=== PATIENT | female | born 1955 | race Caucasian/White ===

== ENCOUNTER 2020-07-24 10:04 | Emergency (ER) | payer BC ==
[~2020-07-24] VITALS: Ht 154.9 cm; Wt 64.7 kg
[2020-07-24 10:28] VITALS: BP 126/82
== END 2020-07-24 11:49 | disposition home or self-care (01) ==
LOC: ER 10:04
DX: S93.401A Sprain of unspecified ligament of right ankle, initial encounter (principal); W19.XXXA Unspecified fall, initial encounter; Y93.89 Activity, other specified; Y92.89 Other specified places as the place of occurrence of the external cause; Y99.8 Other external cause status
CPT/HCPCS: 73610; 99283

== ENCOUNTER 2021-04-04 10:15 | Inpatient (IN) | payer BC, OTHER ==
[~2021-04-04] VITALS: Ht 154.9 cm; Wt 97.9 kg
[2021-04-05] MEDS ORDERED: ESCI-8 PO (09:34)
[2021-04-05] MEDS ORDERED: SUMA25TA35 PO (09:34)
[2021-04-05] MEDS ORDERED: FENTANYL PAIN PUMP (09:34)
[2021-04-05] MEDS ORDERED: TRAZ-256 PO (09:34)
[2021-04-05] MEDS ORDERED: ADAL40PE SUBCUT (09:34)
[2021-04-05] MEDS ORDERED: ATOR20TA PO (09:34)
[2021-04-05 09:55] LABS: BASOPHILS # (AUTO) 0.1 X10'3 (0-0.2); BASOPHILS % (AUTO) 1.2 % (0-1); EOSINOPHILS # (AUTO) 0.1 X10'3 (0-0.9); EOSINOPHILS % (AUTO) 2.2 % (0-6); LYMPHOCYTES # (AUTO) 2.5 X10'3 (1.1-4.8); LYMPHOCYTES % (AUTO) 37.4 % (21-51); MEAN CORPUSCULAR HEMOGLOBIN 31.7 PG (27.0-31.0); MEAN CORPUSCULAR HGB CONC 33.7 g/dL (33.0-36.5); MEAN CORPUSCULAR VOLUME 93.9 FL (78-98); MEAN PLATELET VOLUME 8.4 FL (7.4-10.4); MONOCYTES # (AUTO) 0.7 X10'3 (0-0.9); MONOCYTES % (AUTO) 10.4 % (2-12); NEUTROPHILS # (AUTO) 3.2 X10'3 (1.8-7.7); NEUTROPHILS % (AUTO) 48.8 % (42-75); PRE OP HEMATOCRIT 45.7 % (35.0-45.0); PRE OP HEMOGLOBIN 15.4 g/dL (12.0-16.0); PRE OP PLATELET COUNT 215 X10'3 (140-440); RED BLOOD COUNT 4.87 X10'6 (4.20-5.60)
[2021-04-05 09:57] LABS: CLARITY,URINE CLEAR (Clear); COLOR,URINE YELLOW (Yellow); GLUCOSE, URINE NEGATIVE (Neg); KETONES,URINE NEGATIVE (Neg); LEUKOCYTE ESTERASE ,URINE NEGATIVE (Neg); NITRITES, URINE NEGATIVE (Neg); OCCULT BLOOD,URINE NEGATIVE (Neg); PH,URINE 6.5 (4.8-8.0); PROTEIN,URINE NEGATIVE (Neg); UA COLLECTION TYPE CLN CATCH MIDSTREAM; UROBILINOGEN,URINE 0.2 E.U/dL (0.2-1.0)
[2021-04-05 10:00] LABS: PRE OP PROTIME 10.2 SECONDS (9.0-12.0)
[2021-04-05 10:12] LABS: ALBUMIN 3.7 G/DL (3.4-5.0); ALBUMIN/GLOBULIN RATIO 1.1 (1.1-1.5); ALKALINE PHOSPHATASE 66 IU/L (46-116); BLOOD UREA NITROGEN 10 MG/DL (7-18); BUN/CREATININE RATIO 10.5 (6.6-38.0); CHLORIDE 107 MMOL/L (99-107); CREATININE 0.95 MG/DL (0.40-0.90); PRE OP ALT 27 U/L (30-65); PRE OP ANION GAP 3 (8-16); PRE OP AST 21 U/L (10-37); PRE OP BILIRUB, TOTAL 0.3 MG/DL (0.0-1.0); PRE OP GLUCOSE 94 MG/DL (70-104); PRE OP SODIUM 140 MMOL/L (135-145); TOTAL CARBON DIOXIDE 30.3 MMOL/L (24-32); eGFR 59 ML/MIN
[2021-04-05 10:16] LABS: PRE OP POTASSIUM 4.3 MMOL/L (3.4-5.1)
[2021-04-08] MEDS ORDERED: ringers solution, lacted 1,000 ML IV SCH (05:00)
[2021-04-08] MEDS ORDERED: ceFAZolin 2gm in dextrose, iso 50 ML IV ONE (05:30)
[2021-04-08] MEDS ORDERED: famotidine 20mg tablet PO ONE (05:30)
[2021-04-26 12:00] LABS: BASOPHILS # (AUTO) 0.1 X10'3 (0-0.2); BASOPHILS % (AUTO) 1.1 % (0-1); EOSINOPHILS # (AUTO) 0.1 X10'3 (0-0.9); LYMPHOCYTES % (AUTO) 33.6 % (21-51); MEAN CORPUSCULAR HEMOGLOBIN 32.4 PG (27.0-31.0); MEAN CORPUSCULAR HGB CONC 34.4 g/dL (33.0-36.5); MEAN CORPUSCULAR VOLUME 94.4 FL (78-98); MEAN PLATELET VOLUME 8.3 FL (7.4-10.4); MONOCYTES # (AUTO) 0.7 X10'3 (0-0.9); MONOCYTES % (AUTO) 8.2 % (2-12); NEUTROPHILS % (AUTO) 56.1 % (42-75); PRE OP HEMATOCRIT 44.4 % (35.0-45.0); PRE OP HEMOGLOBIN 15.3 g/dL (12.0-16.0); PRE OP PLATELET COUNT 214 X10'3 (140-440); RED BLOOD COUNT 4.71 X10'6 (4.20-5.60); RED CELL DISTRIBUTION WIDTH 14.2 % (11.5-14.5)
[2021-04-26 12:14] LABS: CLARITY,URINE CLEAR (Clear); COLOR,URINE YELLOW (Yellow); GLUCOSE, URINE NEGATIVE (Neg); KETONES,URINE NEGATIVE (Neg); LEUKOCYTE ESTERASE ,URINE NEGATIVE (Neg); NITRITES, URINE NEGATIVE (Neg); OCCULT BLOOD,URINE NEGATIVE (Neg); PROTEIN,URINE NEGATIVE (Neg); UROBILINOGEN,URINE 0.2 E.U/dL (0.2-1.0)
[2021-04-26 12:16] LABS: ALBUMIN 4.2 G/DL (3.4-5.0); ALBUMIN/GLOBULIN RATIO 1.3 (1.1-1.5); ALKALINE PHOSPHATASE 70 IU/L (46-116); BLOOD UREA NITROGEN 11 MG/DL (7-18); BUN/CREATININE RATIO 12.8 (6.6-38.0); CALCIUM 9.1 MG/DL (8.5-10.1); CHLORIDE 106 MMOL/L (99-107); CREATININE 0.86 MG/DL (0.40-0.90); PRE OP ALT 25 U/L (30-65); PRE OP ANION GAP 10 (8-16); PRE OP AST 22 U/L (10-37); PRE OP BILIRUB, TOTAL 0.4 MG/DL (0.0-1.0); PRE OP GLUCOSE 105 MG/DL (70-104); PRE OP POTASSIUM 4.1 MMOL/L (3.4-5.1); PRE OP SODIUM 141 MMOL/L (135-145); TOTAL CARBON DIOXIDE 25.3 MMOL/L (24-32); TOTAL PROTEIN 7.5 G/DL (6.4-8.2); eGFR 67 ML/MIN
[2021-04-26 12:20] LABS: UA COLLECTION TYPE CLN CATCH MIDSTREAM
[2021-04-29] MEDS ORDERED: ceFAZolin 2gm in dextrose, iso 50 ML IV ONE (05:30)
[2021-04-29] MEDS ORDERED: ringers solution, lacted 1,000 ML IV SCH (05:30)
[2021-04-29] MEDS ORDERED: famotidine 20mg tablet PO ONE (05:30)
[2021-04-29 11:15] VITALS: BP_SYST 143; BP_DIAS 82; BP_DIAS 92
--- NOTE | 2021-04-29 12:00 | NUR ---
RT AT BEDSIDE. BEDSIDE PFT IN PROCESS. Addendum: 04/29/21 at 1229 by Lilian Wills RN, RN Amended: Links added.
[2021-04-29] MEDS ORDERED: albuterol 2.5 MG/3 ML nebule NEB ONE (12:10)
[2021-04-29] MEDS ORDERED: ipratropium/albuterol 3ml nebule NEB PRN (14:55)
[2021-04-29] MEDS ORDERED: diazepam inj 5 MG/ML inj. IV ONE (14:55)
--- NOTE | 2021-04-29 15:27 | NUR ---
RT AT BEDSIDE ADMINISTERING BREATHING TREATMENT Addendum: 04/29/21 at 1527 by Lilian Wills RN, RN Amended: Links added.
== END 2021-04-29 22:14 | disposition home or self-care (01) | DRG 182 ==
LOC: PAS IN 04-29 11:10
PROVIDERS: ADMIT Surgery; ATTEND Surgery
DX: C34.91 Malignant neoplasm of unspecified part of right bronchus or lung (principal); M19.90 Unspecified osteoarthritis, unspecified site; J44.9 Chronic obstructive pulmonary disease, unspecified; F32.A Depression, unspecified; E78.5 Hyperlipidemia, unspecified; G89.29 Other chronic pain; Z79.899 Other long term (current) drug therapy
CPT/HCPCS: 36415; 71046; 71250; 80053; 81003; 82948; 85025; 85610; 85730; 86885; 86900; 86901; 87081; 87635; 93005; 94060; 94640; 94760; J0690; J3360; J7120

== ENCOUNTER 2021-05-03 11:15 | Inpatient (IN) | payer OTHER ==
[~2021-05-03] VITALS: Ht 154.9 cm; Wt 63.5 kg
[~2021-05-03 11:15] MED LIST: ADAL40PE SUBCUT; ATOR20TA PO; ESCI-8 PO; FENTANYL PAIN PUMP; SUMA25TA35 PO; TRAZ-256 PO; cefazolin/dext.iso 2gm/50ml IV ONE; famotidine 20mg tablet PO ONE; ringers solution, lacted 1,000 ML IV SCH
[2021-05-06] VITALS (15 sets, daily range): BP systolic 90–139; BP diastolic 40–62
[2021-05-06] MEDS ORDERED: SUMAtriptan 25 MG tablet PO PRN (05:30)
[2021-05-06 06:43] LABS: ABG BASE EXCESS -1.1 mmol/L (-2.0-2.0); ABG HCO3 22.8 mmol/L (22.0-26.0); ABG OXYGEN SATURATION 95.1 % (94-97); ABG PO2 (T) 73.3 mmHg (75.0-100.0); ALLEN'S TEST POSITIVE; FCOHb 0.6 % (0.0-3.9); FMetHb 0.1 % (0.0-1.5); FO2Hb 94.4 % (94-97); TOTAL HEMOGLOBIN 15.5 G/dl (12.0-16.0)
[2021-05-06] MEDS ORDERED: ringers solution, lacted 1,000 ML IV SCH ×2 (12:45→19:50)
[2021-05-06] MEDS ORDERED: famotidine 20mg tablet PO ONE (12:45)
[2021-05-06 13:34] LABS: PARTIAL THROMBOPLASTIN TIME 27 SECONDS (22-32)
[2021-05-06] MEDS ORDERED: midazolam 1 mg/ML 2ml injection ONE (14:12)
[2021-05-06] MEDS ORDERED: fentaNYL /PF 50mcg/ml 5ml ampule ONE ×2 (14:37→16:28)
[2021-05-06] MEDS ORDERED: LIDOcaine 1% (10mg/ml) 2ml vial ONE (14:37)
[2021-05-06] MEDS ORDERED: LIDOcaine 2% (20mg/ml) 5ml vial ONE (16:09)
[2021-05-06] MEDS ORDERED: BUPIVAcaine/PF 2.5mg/ml (0.25%) 10ml vial ONE (16:09)
[2021-05-06] MEDS ORDERED: rocuronium 10mg/ml inj IV ONE ×3 (16:09→19:07)
[2021-05-06] MEDS ORDERED: ePHEDrine 50MG/ML INJ. ONE (16:09)
[2021-05-06] MEDS ORDERED: BUPIVACAINE liposomal/PF 13.3 MG/ML vial IM ONE (16:09)
[2021-05-06] MEDS ORDERED: propofol inj 20 ML IV ONE (16:10)
[2021-05-06] MEDS ORDERED: INDOCYANINE GREEN 25 MG/10 ML VIAL IV ONE (17:19)
[2021-05-06] MEDS ORDERED: sugammadex 200mg/2ml injection IV ONE (18:30)
[2021-05-06] MEDS ORDERED: ceFAZolin 1000mg inj ONE (19:07)
[2021-05-06] MEDS ORDERED: morphine 10mg/ml inj. ONE ×2 (19:24→19:31)
[2021-05-06] MEDS ORDERED: fentaNYL/PF 50MCG/1 ML 2ML syringe ONE ×2 (19:35)
--- NOTE | 2021-05-06 19:44 | NUR ---
Received from OR via BED IN STABLE CONDITION , accompanied by Anesthesiologist and CHILDREN'S SERVICE WORKER report given by CHILDREN'S SERVICE WORKER AND Anesthesiolgist. Addendum: 05/06/21 at 2012 by Trinidad Jackson RN Amended: Links added.
[2021-05-06] MEDS ORDERED: ondansetron/PF 4mg/2ml inj IV PRN ×2 (19:50→20:00)
[2021-05-06] MEDS ORDERED: morphine 2 MG/ML inj. syringe IV PRN (19:50)
[2021-05-06] MEDS ORDERED: hydrALAZINE 20mg/ml inj. IV PRN (19:50)
[2021-05-06] MEDS ORDERED: labetalol 20mg/4ml (5mg/ml) syringe IV PRN (19:50)
[2021-05-06] MEDS ORDERED: proCHLORperazine 10 MG/2 ml inj IV PRN (19:50)
[2021-05-06] MEDS ORDERED: morphine 4 MG/ML inj SYRINge IV PRN (19:50)
[2021-05-06] MEDS ORDERED: fentaNYL/PF 50MCG/1 ML 2ML syringe IV PRN ×2 (19:50)
[2021-05-06] MEDS ORDERED: ketorolac trometh. 30mg/ml inj. IV ONE (19:55)
[2021-05-06] MEDS ORDERED: albuterol 2.5 MG/3 ML nebule NEB PRN (20:00)
[2021-05-06] MEDS: ketorolac trometh. 30mg/ml inj. IV SCH (20:00)
[2021-05-06] MEDS ORDERED: metoclopramide 5 mg/ml inj IV PRN (20:00)
[2021-05-06] MEDS ORDERED: CADD PCA waste documentation MC PRN (20:00)
[2021-05-06] MEDS ORDERED: naloxone 0.4 mg/ml inj IV PRN (20:00)
--- NOTE | 2021-05-06 20:12 | NUR ---
PATIENT STARTED TO DESATURATE ABOUT 1950 AND HAD SNORING RESPIRATIONS ORAL AIRWAY PLACED. THEN AT APPROXIMATELY 1999 PATIENT BECAME ALERT AND ORAL AIRWAY WAS REMOVED. Addendum: 05/06/21 at 2014 by Trinidad Jackson RN Amended: Links added.
[2021-05-06 20:27] LABS: ABG BASE EXCESS -4.4 mmol/L (-2.0-2.0); ABG HCO3 23.9 mmol/L (22.0-26.0); ABG OXYGEN SATURATION 95.3 % (94-97); ABG PCO2 (T) 58.2 mmHg (32.0-45.0); ABG PO2 (T) 89.4 mmHg (75.0-100.0); FCOHb 0.2 % (0.0-3.9); FLOW 10 L/min; FMetHb 0.2 % (0.0-1.5); FO2Hb 94.9 % (94-97); TOTAL HEMOGLOBIN 13.7 G/dl (12.0-16.0)
--- NOTE | 2021-05-06 21:04 | NUR ---
PATIENT DISCHARGED FROM PACU IN STABLE CONDITION AFTER REPORT GIVEN. PATIENT TRANSFERRED VIA BED TO ROOM 2012 WITH RNX2. Addendum: 05/06/21 at 2 by Trinidad Jackson RN Amended: Links added.
[2021-05-06] MEDS: gabapentin 300mg capsule PO SCH (22:28)
[2021-05-06] MEDS: HYDROcodone/acetaminophen 10/325mg tab PO PRN (22:29)
[2021-05-06 23:01] LABS: ABG BASE EXCESS -2.8 mmol/L (-2.0-2.0); ABG HCO3 24.2 mmol/L (22.0-26.0); ABG OXYGEN SATURATION 96.2 % (94-97); ABG PCO2 (T) 51.1 mmHg (32.0-45.0); ABG PO2 (T) 89.2 mmHg (75.0-100.0); FCOHb 0.3 % (0.0-3.9); FMetHb 0.2 % (0.0-1.5); FO2Hb 95.7 % (94-97); TOTAL HEMOGLOBIN 13.9 G/dl (12.0-16.0)
[2021-05-06] MEDS: potassium Cl 20mEq in D5-NS 1,000 ML IV SCH (23:39)
[2021-05-07] VITALS (31 sets, daily range): BP systolic 83–125; BP diastolic 32–64
[2021-05-07] MEDS: ceFAZolin inj. 1,000 MG in dextrose 5%-water 50ml 50 ML IV SCH ×2 (00:07→09:05)
[2021-05-07] MEDS: NORepinephrine 8mg/ 250ml NS 250 ML IV SCH (00:42)
[2021-05-07] MEDS: ketorolac trometh. 30mg/ml inj. IV SCH ×3 (02:00→13:46)
[2021-05-07] MEDS ORDERED: amiodarone/D5 360MG/200ML BAG 200 ML IV ONE (04:29)
[2021-05-07] MEDS: morphine 4 MG/ML inj SYRINge IV PRN ×2 (05:15→20:46)
[2021-05-07] MEDS: gabapentin 300mg capsule PO SCH ×2 (10:05→18:52)
[2021-05-07] MEDS: potassium Cl 20mEq in D5-NS 1,000 ML IV SCH ×2 (11:17→18:52)
[2021-05-07] MEDS ORDERED: SUMAtriptan 25 MG tablet PO PRN (11:40)
[2021-05-07] MEDS: pantoprazole 40mg Tablet.DR PO SCH (12:41)
[2021-05-07] MEDS: nicotine 21mg patch - 24 hr TD SCH (12:41)
[2021-05-07 12:46] LABS: BASOPHILS % (AUTO) 0.3 % (0-1); EOSINOPHILS % (AUTO) 0.1 % (0-6); HEMATOCRIT 36.2 % (35.0-45.0); LYMPHOCYTES # (AUTO) 2.5 X10'3 (1.1-4.8); LYMPHOCYTES % (AUTO) 24.7 % (21-51); MEAN CORPUSCULAR HEMOGLOBIN 31.9 PG (27.0-31.0); MEAN CORPUSCULAR HGB CONC 33.3 g/dL (33.0-36.5); MEAN CORPUSCULAR VOLUME 95.8 FL (78-98); MEAN PLATELET VOLUME 8.6 FL (7.4-10.4); MONOCYTES # (AUTO) 1.1 X10'3 (0-0.9); MONOCYTES % (AUTO) 10.9 % (2-12); NEUTROPHILS # (AUTO) 6.4 X10'3 (1.8-7.7); PLATELET COUNT 186 X10'3 (140-440); RED BLOOD COUNT 3.78 X10'6 (4.20-5.60); RED CELL DISTRIBUTION WIDTH 14.2 % (11.5-14.5)
[2021-05-07 12:55] LABS: ALANINE AMINOTRANSFERASE 17 U/L (12-78); ALBUMIN 2.9 G/DL (3.4-5.0); ALBUMIN/GLOBULIN RATIO 1.1 (1.1-1.5); ALKALINE PHOSPHATASE 42 IU/L (46-116); ANION GAP 8 (8-16); ASPARTATE AMINO TRANSFERASE 29 U/L (10-37); BILIRUBIN,TOTAL 0.3 MG/DL (0.1-1.0); BLOOD UREA NITROGEN 8 MG/DL (7-18); CALCIUM 7.8 MG/DL (8.5-10.1); CHLORIDE 105 MMOL/L (99-107); GLUCOSE 122 MG/DL (70-104); MAGNESIUM 1.7 MG/DL (1.5-2.4); PHOSPHORUS 2.2 MG/DL (2.3-4.5); POTASSIUM 3.7 MMOL/L (3.5-5.1); SODIUM 138 MMOL/L (135-145); TOTAL PROTEIN 5.5 G/DL (6.4-8.2); eGFR 72 ML/MIN
[2021-05-07 13:13] LABS: PARTIAL THROMBOPLASTIN TIME 28 SECONDS (22-32)
[2021-05-07] MEDS ORDERED: albumin (Human) 5% 250ml 250 ML IV ONE ×2 (13:44→13:45)
[2021-05-07] MEDS: HYDROcodone/acetaminophen 10/325mg tab PO PRN (18:51)
[2021-05-07] MEDS: enoxaparin 40mg/0.4ml syringe SUBCUT SCH (18:52)
[2021-05-07] MEDS: ESCITALOPRAM OXALATE 5 MG TABLET PO SCH (21:00)
[2021-05-07] MEDS: traZODone 50mg tablet PO SCH (21:00)
[2021-05-07] MEDS: atorvastatin 20mg tablet PO SCH (21:00)
[2021-05-08] VITALS (21 sets, daily range): BP systolic 91–155; BP diastolic 42–72
[2021-05-08 02:54] LABS: BASOPHILS % (AUTO) 0.4 % (0-1); EOSINOPHILS % (AUTO) 0.5 % (0-6); HEMATOCRIT 35.3 % (35.0-45.0); HEMOGLOBIN 11.8 g/dl (12.0-16.0); LYMPHOCYTES % (AUTO) 33.1 % (21-51); MEAN CORPUSCULAR HEMOGLOBIN 32.3 PG (27.0-31.0); MEAN CORPUSCULAR HGB CONC 33.4 g/dL (33.0-36.5); MEAN CORPUSCULAR VOLUME 96.7 FL (78-98); MEAN PLATELET VOLUME 8.5 FL (7.4-10.4); MONOCYTES # (AUTO) 0.8 X10'3 (0-0.9); MONOCYTES % (AUTO) 9.4 % (2-12); NEUTROPHILS # (AUTO) 5.1 X10'3 (1.8-7.7); NEUTROPHILS % (AUTO) 56.6 % (42-75); PLATELET COUNT 170 X10'3 (140-440); RED BLOOD COUNT 3.65 X10'6 (4.20-5.60); RED CELL DISTRIBUTION WIDTH 14.3 % (11.5-14.5)
[2021-05-08 03:17] LABS: ALANINE AMINOTRANSFERASE 23 U/L (12-78); ALBUMIN 3.2 G/DL (3.4-5.0); ALBUMIN/GLOBULIN RATIO 1.2 (1.1-1.5); ALKALINE PHOSPHATASE 41 IU/L (46-116); ANION GAP 9 (8-16); ASPARTATE AMINO TRANSFERASE 34 U/L (10-37); BILIRUBIN,TOTAL 0.3 MG/DL (0.1-1.0); BLOOD UREA NITROGEN 5 MG/DL (7-18); BUN/CREATININE RATIO 7.5 (6.6-38.0); CALCIUM 8.3 MG/DL (8.5-10.1); CHLORIDE 111 MMOL/L (99-107); CREATININE 0.67 MG/DL (0.40-0.90); GLUCOSE 116 MG/DL (70-104); MAGNESIUM 1.9 MG/DL (1.5-2.4); PHOSPHORUS 2.3 MG/DL (2.3-4.5); POTASSIUM 4.1 MMOL/L (3.5-5.1); SODIUM 144 MMOL/L (135-145); TOTAL CARBON DIOXIDE 23.8 MMOL/L (24-32); TOTAL PROTEIN 5.8 G/DL (6.4-8.2); eGFR 89 ML/MIN
[2021-05-08] MEDS: pantoprazole 40mg Tablet.DR PO SCH (07:29)
[2021-05-08] MEDS: HYDROcodone/acetaminophen 10/325mg tab PO PRN ×2 (07:29→13:00)
[2021-05-08] MEDS: nicotine 21mg patch - 24 hr TD SCH (07:29)
[2021-05-08] MEDS: gabapentin 300mg capsule PO SCH (07:29)
[2021-05-08] MEDS: NORepinephrine 8mg/ 250ml NS 250 ML IV SCH ×2 (09:05→10:15)
[2021-05-08] MEDS: morphine 2 MG/ML inj. syringe IV PRN ×3 (10:32→20:12)
--- NOTE | 2021-05-08 13:38 | NUR ---
Per Dr. Levin Central line and martinez catheter removed and fluids changed to tko.
[2021-05-08] MEDS: enoxaparin 40mg/0.4ml syringe SUBCUT SCH (20:13)
[2021-05-08] MEDS: ESCITALOPRAM OXALATE 5 MG TABLET PO SCH (20:14)
[2021-05-08] MEDS: atorvastatin 20mg tablet PO SCH (20:14)
[2021-05-08] MEDS: traZODone 50mg tablet PO SCH (20:14)
[2021-05-09] VITALS (15 sets, daily range): BP systolic 121–160; BP diastolic 56–82
[2021-05-09] MEDS: morphine 2 MG/ML inj. syringe IV PRN ×2 (03:03→06:44)
[2021-05-09 06:31] LABS: BASOPHILS % (AUTO) 0.5 % (0-1); EOSINOPHILS # (AUTO) 0.1 X10'3 (0-0.9); EOSINOPHILS % (AUTO) 0.7 % (0-6); HEMATOCRIT 35.5 % (35.0-45.0); HEMOGLOBIN 12.2 g/dl (12.0-16.0); LYMPHOCYTES # (AUTO) 1.7 X10'3 (1.1-4.8); LYMPHOCYTES % (AUTO) 19.7 % (21-51); MEAN CORPUSCULAR HGB CONC 34.3 g/dL (33.0-36.5); MEAN CORPUSCULAR VOLUME 93.2 FL (78-98); MEAN PLATELET VOLUME 8.7 FL (7.4-10.4); MONOCYTES # (AUTO) 0.8 X10'3 (0-0.9); MONOCYTES % (AUTO) 9.5 % (2-12); NEUTROPHILS # (AUTO) 5.8 X10'3 (1.8-7.7); NEUTROPHILS % (AUTO) 69.6 % (42-75); PLATELET COUNT 179 X10'3 (140-440); RED CELL DISTRIBUTION WIDTH 13.6 % (11.5-14.5); WHITE BLOOD COUNT 8.4 X10'3 (4.5-11.0)
[2021-05-09 06:35] LABS: ALANINE AMINOTRANSFERASE 20 U/L (12-78); ALBUMIN 3.2 G/DL (3.4-5.0); ALKALINE PHOSPHATASE 49 IU/L (46-116); ANION GAP 12 (8-16); ASPARTATE AMINO TRANSFERASE 31 U/L (10-37); BILIRUBIN,TOTAL 0.5 MG/DL (0.1-1.0); BLOOD UREA NITROGEN 4 MG/DL (7-18); BUN/CREATININE RATIO 6.5 (6.6-38.0); CALCIUM 8.6 MG/DL (8.5-10.1); CHLORIDE 106 MMOL/L (99-107); CREATININE 0.62 MG/DL (0.40-0.90); GLUCOSE 115 MG/DL (70-104); MAGNESIUM 1.8 MG/DL (1.5-2.4); POTASSIUM 3.4 MMOL/L (3.5-5.1); SODIUM 143 MMOL/L (135-145); TOTAL CARBON DIOXIDE 25.2 MMOL/L (24-32); TOTAL PROTEIN 6.3 G/DL (6.4-8.2); eGFR > 90 ML/MIN
[2021-05-09] MEDS: pantoprazole 40mg Tablet.DR PO SCH (08:08)
[2021-05-09] MEDS: nicotine 21mg patch - 24 hr TD SCH (08:09)
[2021-05-09] MEDS: HYDROcodone/acetaminophen 10/325mg tab PO PRN ×3 (11:15→22:52)
[2021-05-09] MEDS ORDERED: magnesium 4gm in 100ml NS 100 ML IV PRN (14:50)
[2021-05-09] MEDS ORDERED: potassium CL 10mEq/100ml bag 100 ML IV PRN (14:50)
[2021-05-09] MEDS ORDERED: magnesium Cl slow-release 64mg tablet PO PRN (14:50)
[2021-05-09] MEDS ORDERED: magnesium 2GM in 50ml NS 50 ML IV PRN (14:50)
[2021-05-09] MEDS ORDERED: potassium Cl 20 mEq SR tablet PO PRN (14:50)
[2021-05-09] MEDS: ESCITALOPRAM OXALATE 5 MG TABLET PO SCH (19:53)
[2021-05-09] MEDS: traZODone 50mg tablet PO SCH (19:53)
[2021-05-09] MEDS: enoxaparin 40mg/0.4ml syringe SUBCUT SCH (19:54)
[2021-05-09] MEDS: potassium Cl 20 mEq SR tablet PO PRN (19:55)
[2021-05-09] MEDS: K and/or MAG REPLACEMENT MC SCH (19:56)
[2021-05-09] MEDS: atorvastatin 20mg tablet PO SCH (22:52)
[2021-05-10 07:00] VITALS: BP 113/79
[2021-05-10 07:21] LABS: BASOPHILS # (AUTO) 0.1 X10'3 (0-0.2); BASOPHILS % (AUTO) 0.8 % (0-1); EOSINOPHILS # (AUTO) 0.2 X10'3 (0-0.9); EOSINOPHILS % (AUTO) 2.6 % (0-6); HEMATOCRIT 38.9 % (35.0-45.0); HEMOGLOBIN 13.3 g/dl (12.0-16.0); LYMPHOCYTES % (AUTO) 28.9 % (21-51); MEAN CORPUSCULAR HEMOGLOBIN 31.9 PG (27.0-31.0); MEAN CORPUSCULAR HGB CONC 34.1 g/dL (33.0-36.5); MEAN CORPUSCULAR VOLUME 93.3 FL (78-98); MEAN PLATELET VOLUME 8.5 FL (7.4-10.4); MONOCYTES # (AUTO) 0.8 X10'3 (0-0.9); MONOCYTES % (AUTO) 11.3 % (2-12); NEUTROPHILS # (AUTO) 3.8 X10'3 (1.8-7.7); NEUTROPHILS % (AUTO) 56.4 % (42-75); PLATELET COUNT 201 X10'3 (140-440); RED BLOOD COUNT 4.16 X10'6 (4.20-5.60); RED CELL DISTRIBUTION WIDTH 13.7 % (11.5-14.5); WHITE BLOOD COUNT 6.8 X10'3 (4.5-11.0)
[2021-05-10 07:50] LABS: ALANINE AMINOTRANSFERASE 14 U/L (12-78); ALBUMIN 2.8 G/DL (3.4-5.0); ALBUMIN/GLOBULIN RATIO 0.9 (1.1-1.5); ALKALINE PHOSPHATASE 47 IU/L (46-116); ANION GAP 7 (8-16); ASPARTATE AMINO TRANSFERASE 25 U/L (10-37); BILIRUBIN,TOTAL 0.5 MG/DL (0.1-1.0); BLOOD UREA NITROGEN 7 MG/DL (7-18); BUN/CREATININE RATIO 10.9 (6.6-38.0); CHLORIDE 106 MMOL/L (99-107); CREATININE 0.64 MG/DL (0.40-0.90); GLUCOSE 100 MG/DL (70-104); PHOSPHORUS 3.5 MG/DL (2.3-4.5); POTASSIUM 3.3 MMOL/L (3.5-5.1); SODIUM 139 MMOL/L (135-145); TOTAL CARBON DIOXIDE 26.3 MMOL/L (24-32); eGFR > 90 ML/MIN
[2021-05-10] MEDS: K and/or MAG REPLACEMENT MC SCH ×2 (08:00→20:12)
[2021-05-10] MEDS: nicotine 21mg patch - 24 hr TD SCH (08:02)
[2021-05-10] MEDS: pantoprazole 40mg Tablet.DR PO SCH (08:02)
[2021-05-10] MEDS: HYDROcodone/acetaminophen 10/325mg tab PO PRN ×2 (08:03→13:19)
[2021-05-10 15:00] VITALS: BP 126/64
[2021-05-10 18:00] VITALS: BP 140/59
[2021-05-10] MEDS: enoxaparin 40mg/0.4ml syringe SUBCUT SCH (20:08)
[2021-05-10] MEDS: traZODone 50mg tablet PO SCH (20:09)
[2021-05-10] MEDS: ESCITALOPRAM OXALATE 5 MG TABLET PO SCH (20:09)
[2021-05-10] MEDS: potassium Cl 20 mEq SR tablet PO PRN (20:10)
[2021-05-10] MEDS: atorvastatin 20mg tablet PO SCH (20:14)
[2021-05-10 22:00] VITALS: BP 158/74
[2021-05-11] MEDS: HYDROcodone/acetaminophen 10/325mg tab PO PRN ×4 (00:29→23:01)
[2021-05-11 02:00] VITALS: BP 134/54
[2021-05-11 02:32] LABS: ALANINE AMINOTRANSFERASE 18 U/L (12-78); ALBUMIN 2.9 G/DL (3.4-5.0); ALBUMIN/GLOBULIN RATIO 0.9 (1.1-1.5); ALKALINE PHOSPHATASE 48 IU/L (46-116); ANION GAP 10 (8-16); ASPARTATE AMINO TRANSFERASE 20 U/L (10-37); BILIRUBIN,TOTAL 0.5 MG/DL (0.1-1.0); BLOOD UREA NITROGEN 11 MG/DL (7-18); BUN/CREATININE RATIO 12.9 (6.6-38.0); CALCIUM 8.8 MG/DL (8.5-10.1); CHLORIDE 106 MMOL/L (99-107); CREATININE 0.85 MG/DL (0.40-0.90); GLUCOSE 131 MG/DL (70-104); POTASSIUM 3.4 MMOL/L (3.5-5.1); SODIUM 143 MMOL/L (135-145); TOTAL CARBON DIOXIDE 27.5 MMOL/L (24-32); TOTAL PROTEIN 6.1 G/DL (6.4-8.2); eGFR 68 ML/MIN
[2021-05-11 02:35] LABS: MAGNESIUM 1.9 MG/DL (1.5-2.4); PHOSPHORUS 3.6 MG/DL (2.3-4.5)
[2021-05-11] MEDS: morphine 2 MG/ML inj. syringe IV PRN (04:18)
--- NOTE | 2021-05-11 06:50 | NUR ---
patient complained of pain on the incision site of the chest tube and pain in right side of chest and tingling on the right hand. Dr. Carlos notified EKG, troponin and chest xray done. pt is also anxious. pain medication seemed to help relieve pain.
[2021-05-11 07:00] VITALS: BP 136/72
--- NOTE | 2021-05-11 07:00 | NUR ---
Patient in room PCU 3021. I have received report from Aide and had the opportunity to ask questions and assume patient care.
[2021-05-11] MEDS: K and/or MAG REPLACEMENT MC SCH ×2 (08:00→19:58)
[2021-05-11 08:32] LABS: BASOPHILS # (AUTO) 0.1 X10'3 (0-0.2); EOSINOPHILS # (AUTO) 0.2 X10'3 (0-0.9); EOSINOPHILS % (AUTO) 2.6 % (0-6); HEMATOCRIT 39.4 % (35.0-45.0); HEMOGLOBIN 13.5 g/dl (12.0-16.0); LYMPHOCYTES # (AUTO) 3.1 X10'3 (1.1-4.8); LYMPHOCYTES % (AUTO) 40.2 % (21-51); MEAN CORPUSCULAR HEMOGLOBIN 32.2 PG (27.0-31.0); MEAN CORPUSCULAR HGB CONC 34.3 g/dL (33.0-36.5); MEAN CORPUSCULAR VOLUME 93.8 FL (78-98); MEAN PLATELET VOLUME 8.2 FL (7.4-10.4); MONOCYTES # (AUTO) 0.7 X10'3 (0-0.9); MONOCYTES % (AUTO) 9.6 % (2-12); NEUTROPHILS # (AUTO) 3.6 X10'3 (1.8-7.7); NEUTROPHILS % (AUTO) 46.6 % (42-75); PLATELET COUNT 237 X10'3 (140-440); RED CELL DISTRIBUTION WIDTH 13.8 % (11.5-14.5); WHITE BLOOD COUNT 7.6 X10'3 (4.5-11.0)
[2021-05-11] MEDS: pantoprazole 40mg Tablet.DR PO SCH (09:39)
[2021-05-11] MEDS: nicotine 21mg patch - 24 hr TD SCH (09:39)
[2021-05-11] MEDS: potassium Cl 20 mEq SR tablet PO PRN ×2 (09:44→19:55)
[2021-05-11 11:00] VITALS: BP 145/60
--- NOTE | 2021-05-11 11:27 | NUR ---
Initial: Pt with RLL mass, s/p thoracoscopic right lower lobectomy with wedge resection and node dissection with chest tube placement. Pt eating well throughout LOS with mostly 75% PO intake however occasionally with 75-100% PO intake, initially on a clear liquid diet which was advanced to regular diet 05/07. No documented BM since admit. D/w dietary to send prunes and prune juice with next meal to assist with bowel regularity. Will continue to follow and monitor need for further nutrition intervention. Recommendations: 1) Continue regular diet 2) Routine bowel care 3) Weekly scaled weights Addendum: 05/11/21 at [address] Amended: Links added.
[2021-05-11 15:00] VITALS: BP 127/73
[2021-05-11] MEDS: morphine 4 MG/ML inj SYRINge IV PRN (19:52)
[2021-05-11] MEDS: atorvastatin 20mg tablet PO SCH (19:56)
[2021-05-11] MEDS: ESCITALOPRAM OXALATE 5 MG TABLET PO SCH (19:56)
[2021-05-11] MEDS: enoxaparin 40mg/0.4ml syringe SUBCUT SCH (19:57)
[2021-05-11] MEDS: traZODone 50mg tablet PO SCH (20:04)
--- NOTE | 2021-05-11 21:12 | NUR ---
Problems reprioritized. Patient report given, questions answered & plan of care reviewed with
--- NOTE | 2021-05-11 21:15 | NUR ---
Laborer [employer] made aware by charge nurse that she had connected patient's chest tube to wall suctioning due to air leaks per provider. Dressing to chest tube site noted intact. serosanguineous drainage noted in drainage tubing. Patient is able to ambulate to the bathroom as needed. Pain medication as needed. No distress noted during the shift.
[2021-05-11 23:00] VITALS: BP 146/73
[2021-05-12 02:00] VITALS: BP 138/54
[2021-05-12] MEDS: morphine 2 MG/ML inj. syringe IV PRN ×2 (02:12→15:23)
[2021-05-12 06:00] VITALS: BP 120/79
[2021-05-12 07:01] LABS: BASOPHILS # (AUTO) 0.1 X10'3 (0-0.2); BASOPHILS % (AUTO) 0.8 % (0-1); EOSINOPHILS # (AUTO) 0.3 X10'3 (0-0.9); EOSINOPHILS % (AUTO) 3.6 % (0-6); HEMATOCRIT 38.6 % (35.0-45.0); HEMOGLOBIN 13.5 g/dl (12.0-16.0); LYMPHOCYTES # (AUTO) 2.5 X10'3 (1.1-4.8); LYMPHOCYTES % (AUTO) 36.2 % (21-51); MEAN CORPUSCULAR HEMOGLOBIN 32.5 PG (27.0-31.0); MEAN CORPUSCULAR HGB CONC 34.9 g/dL (33.0-36.5); MEAN CORPUSCULAR VOLUME 93.2 FL (78-98); MONOCYTES # (AUTO) 0.7 X10'3 (0-0.9); MONOCYTES % (AUTO) 9.9 % (2-12); NEUTROPHILS # (AUTO) 3.5 X10'3 (1.8-7.7); NEUTROPHILS % (AUTO) 49.5 % (42-75); PLATELET COUNT 250 X10'3 (140-440); RED BLOOD COUNT 4.14 X10'6 (4.20-5.60); RED CELL DISTRIBUTION WIDTH 13.9 % (11.5-14.5)
[2021-05-12 07:08] LABS: GLUCOSE 103 MG/DL (70-104); SODIUM 144 MMOL/L (135-145)
[2021-05-12 07:09] LABS: ALANINE AMINOTRANSFERASE 20 U/L (12-78); ALBUMIN/GLOBULIN RATIO 0.9 (1.1-1.5); ALKALINE PHOSPHATASE 49 IU/L (46-116); ANION GAP 8 (8-16); ASPARTATE AMINO TRANSFERASE 23 U/L (10-37); BILIRUBIN,TOTAL 0.4 MG/DL (0.1-1.0); BLOOD UREA NITROGEN 10 MG/DL (7-18); BUN/CREATININE RATIO 13.7 (6.6-38.0); CALCIUM 8.9 MG/DL (8.5-10.1); CHLORIDE 108 MMOL/L (99-107); CREATININE 0.73 MG/DL (0.40-0.90); TOTAL CARBON DIOXIDE 27.8 MMOL/L (24-32); TOTAL PROTEIN 6.2 G/DL (6.4-8.2); eGFR 81 ML/MIN
[2021-05-12] MEDS: K and/or MAG REPLACEMENT MC SCH ×2 (08:00→20:00)
[2021-05-12] MEDS: pantoprazole 40mg Tablet.DR PO SCH (08:39)
[2021-05-12] MEDS: HYDROcodone/acetaminophen 10/325mg tab PO PRN ×2 (08:39→19:42)
[2021-05-12] MEDS: nicotine 21mg patch - 24 hr TD SCH (08:40)
[2021-05-12 11:00] VITALS: BP 114/49
[2021-05-12 15:00] VITALS: BP 114/54
[2021-05-12 18:00] VITALS: BP 146/80
[2021-05-12] MEDS: ESCITALOPRAM OXALATE 5 MG TABLET PO SCH (19:41)
[2021-05-12] MEDS: enoxaparin 40mg/0.4ml syringe SUBCUT SCH (19:41)
[2021-05-12] MEDS: atorvastatin 20mg tablet PO SCH (19:41)
[2021-05-12] MEDS: traZODone 50mg tablet PO SCH (20:00)
[2021-05-12 23:00] VITALS: BP 149/76
[2021-05-13] MEDS: morphine 2 MG/ML inj. syringe IV PRN ×2 (00:42→11:54)
[2021-05-13 02:00] VITALS: BP 122/58
[2021-05-13] MEDS: HYDROcodone/acetaminophen 10/325mg tab PO PRN ×2 (05:06→17:25)
[2021-05-13 06:00] VITALS: BP 123/54
[2021-05-13 06:07] LABS: BASOPHILS # (AUTO) 0.1 X10'3 (0-0.2); BASOPHILS % (AUTO) 0.9 % (0-1); EOSINOPHILS # (AUTO) 0.2 X10'3 (0-0.9); EOSINOPHILS % (AUTO) 2.4 % (0-6); HEMATOCRIT 39.8 % (35.0-45.0); HEMOGLOBIN 13.8 g/dl (12.0-16.0); MEAN CORPUSCULAR HEMOGLOBIN 32.3 PG (27.0-31.0); MEAN CORPUSCULAR HGB CONC 34.7 g/dL (33.0-36.5); MEAN CORPUSCULAR VOLUME 93.3 FL (78-98); MEAN PLATELET VOLUME 7.8 FL (7.4-10.4); MONOCYTES % (AUTO) 10.1 % (2-12); NEUTROPHILS # (AUTO) 5.3 X10'3 (1.8-7.7); NEUTROPHILS % (AUTO) 55.6 % (42-75); PLATELET COUNT 282 X10'3 (140-440); RED BLOOD COUNT 4.27 X10'6 (4.20-5.60); RED CELL DISTRIBUTION WIDTH 13.8 % (11.5-14.5); WHITE BLOOD COUNT 9.5 X10'3 (4.5-11.0)
[2021-05-13 06:26] LABS: ALANINE AMINOTRANSFERASE 28 U/L (12-78); ALBUMIN 3.2 G/DL (3.4-5.0); ALBUMIN/GLOBULIN RATIO 0.9 (1.1-1.5); ALKALINE PHOSPHATASE 55 IU/L (46-116); ANION GAP 9 (8-16); ASPARTATE AMINO TRANSFERASE 25 U/L (10-37); BILIRUBIN,TOTAL 0.3 MG/DL (0.1-1.0); BLOOD UREA NITROGEN 10 MG/DL (7-18); BUN/CREATININE RATIO 12.2 (6.6-38.0); CALCIUM 9.3 MG/DL (8.5-10.1); CHLORIDE 103 MMOL/L (99-107); CREATININE 0.82 MG/DL (0.40-0.90); GLUCOSE 104 MG/DL (70-104); PHOSPHORUS 3.9 MG/DL (2.3-4.5); POTASSIUM 3.5 MMOL/L (3.5-5.1); SODIUM 138 MMOL/L (135-145); TOTAL CARBON DIOXIDE 26.5 MMOL/L (24-32); TOTAL PROTEIN 6.6 G/DL (6.4-8.2); eGFR 70 ML/MIN
[2021-05-13] MEDS: K and/or MAG REPLACEMENT MC SCH ×2 (08:00→20:00)
[2021-05-13] MEDS: nicotine 21mg patch - 24 hr TD SCH (08:11)
[2021-05-13] MEDS: pantoprazole 40mg Tablet.DR PO SCH (08:11)
[2021-05-13 11:00] VITALS: BP 118/66
[2021-05-13 15:00] VITALS: BP 111/46
--- NOTE | 2021-05-13 15:26 | NUR ---
Patient refused accu-check. At this time.
[2021-05-13 18:00] VITALS: BP 122/81
[2021-05-13] MEDS: ESCITALOPRAM OXALATE 5 MG TABLET PO SCH (20:03)
[2021-05-13] MEDS: traZODone 50mg tablet PO SCH (20:04)
[2021-05-13] MEDS: atorvastatin 20mg tablet PO SCH (20:04)
[2021-05-13] MEDS: enoxaparin 40mg/0.4ml syringe SUBCUT SCH (20:13)
[2021-05-13 22:00] VITALS: BP 120/62
[2021-05-14 02:00] VITALS: BP 90/45
[2021-05-14 03:30] VITALS: BP 101/59
[2021-05-14] MEDS: morphine 2 MG/ML inj. syringe IV PRN ×3 (03:59→23:02)
[2021-05-14 06:30] LABS: BASOPHILS # (AUTO) 0.1 X10'3 (0-0.2); BASOPHILS % (AUTO) 0.8 % (0-1); EOSINOPHILS # (AUTO) 0.3 X10'3 (0-0.9); EOSINOPHILS % (AUTO) 3.6 % (0-6); HEMATOCRIT 41.4 % (35.0-45.0); LYMPHOCYTES # (AUTO) 2.4 X10'3 (1.1-4.8); LYMPHOCYTES % (AUTO) 28.5 % (21-51); MEAN CORPUSCULAR HEMOGLOBIN 31.6 PG (27.0-31.0); MEAN CORPUSCULAR HGB CONC 33.9 g/dL (33.0-36.5); MEAN CORPUSCULAR VOLUME 93.3 FL (78-98); MEAN PLATELET VOLUME 7.8 FL (7.4-10.4); MONOCYTES # (AUTO) 0.8 X10'3 (0-0.9); MONOCYTES % (AUTO) 9.9 % (2-12); NEUTROPHILS # (AUTO) 4.9 X10'3 (1.8-7.7); NEUTROPHILS % (AUTO) 57.2 % (42-75); PLATELET COUNT 301 X10'3 (140-440); RED BLOOD COUNT 4.44 X10'6 (4.20-5.60); RED CELL DISTRIBUTION WIDTH 13.9 % (11.5-14.5); WHITE BLOOD COUNT 8.5 X10'3 (4.5-11.0)
[2021-05-14 07:00] VITALS: BP 138/57
[2021-05-14 07:04] LABS: ALANINE AMINOTRANSFERASE 40 U/L (12-78); ALBUMIN/GLOBULIN RATIO 0.9 (1.1-1.5); ALKALINE PHOSPHATASE 53 IU/L (46-116); ANION GAP 7 (8-16); ASPARTATE AMINO TRANSFERASE 38 U/L (10-37); BILIRUBIN,TOTAL 0.3 MG/DL (0.1-1.0); BLOOD UREA NITROGEN 13 MG/DL (7-18); BUN/CREATININE RATIO 17.1 (6.6-38.0); CALCIUM 9.3 MG/DL (8.5-10.1); CHLORIDE 104 MMOL/L (99-107); CREATININE 0.76 MG/DL (0.40-0.90); GLUCOSE 104 MG/DL (70-104); MAGNESIUM 2.1 MG/DL (1.5-2.4); PHOSPHORUS 4.2 MG/DL (2.3-4.5); POTASSIUM 3.9 MMOL/L (3.5-5.1); SODIUM 139 MMOL/L (135-145); TOTAL CARBON DIOXIDE 27.9 MMOL/L (24-32); TOTAL PROTEIN 6.3 G/DL (6.4-8.2); eGFR 77 ML/MIN
[2021-05-14] MEDS: K and/or MAG REPLACEMENT MC SCH ×2 (08:00→20:00)
[2021-05-14] MEDS: HYDROcodone/acetaminophen 10/325mg tab PO PRN ×2 (08:03)
[2021-05-14] MEDS: nicotine 21mg patch - 24 hr TD SCH (08:03)
[2021-05-14] MEDS: pantoprazole 40mg Tablet.DR PO SCH (08:03)
[2021-05-14] MEDS ORDERED: PANT40TA54 PO (10:59)
[2021-05-14] MEDS ORDERED: ALBU2.5V7 NEB (10:59)
[2021-05-14 11:00] VITALS: BP 119/43
[2021-05-14 15:00] VITALS: BP 96/70
[2021-05-14] MEDS: atorvastatin 20mg tablet PO SCH (20:35)
[2021-05-14] MEDS: traZODone 50mg tablet PO SCH (20:35)
[2021-05-14] MEDS: ESCITALOPRAM OXALATE 5 MG TABLET PO SCH (20:35)
[2021-05-14] MEDS: enoxaparin 40mg/0.4ml syringe SUBCUT SCH (20:35)
[2021-05-14 23:00] VITALS: BP 164/84
[2021-05-15 02:00] VITALS: BP 147/71
--- NOTE | 2021-05-15 06:30 | NUR ---
Patient in room PCU 3021. I have received report from Sukhwinder WOODARD and had the opportunity to ask questions and assume patient care.
[2021-05-15 07:00] VITALS: BP 113/42
--- NOTE | 2021-05-15 07:00 | NUR ---
Pt refused am blood sugar check.
--- NOTE | 2021-05-15 07:57 | NUR ---
Dr. Rincon to see pt/pull chest tube. pt tolerated well. no s/sx resp distress. Per Dr. Granger, discharge pt.
[2021-05-15] MEDS: K and/or MAG REPLACEMENT MC SCH (08:00)
[2021-05-15] MEDS: nicotine 21mg patch - 24 hr TD SCH (08:00)
[2021-05-15] MEDS: pantoprazole 40mg Tablet.DR PO SCH (08:33)
[2021-05-15] MEDS: HYDROcodone/acetaminophen 10/325mg tab PO PRN (08:41)
--- NOTE | 2021-05-15 12:30 | NUR ---
Pt stable for discharge per MD order. PIV discontinued cannula intact. Tele monitor discontinued. All discharge instructions explained. all questions answered. New Rx escripted to [facility] in [place]. All belongings collected. pt independently ambulated down to the lobby, accompanied by her , and this nurse. pt without SOB, no significant pain. no s/sx acute distress. pt left in private vehicle.
== END 2021-05-15 12:44 | disposition home or self-care (01) | DRG 163 ==
LOC: PAS IN 05-06 12:01 → CICU 2S 05-06 23:11 → PCU 3S 05-08 17:34
PROVIDERS: ADMIT Surgery; ATTEND Surgery
PROC: 0BBC4ZZ Excision of Right Upper Lung Lobe, Percutaneous Endoscopic Approach (ICD-10-PCS; 2021-05-06)
PROC: 07B74ZZ Excision of Thorax Lymphatic, Percutaneous Endoscopic Approach (ICD-10-PCS; 2021-05-06)
PROC: 0W9940Z Drainage of Right Pleural Cavity with Drainage Device, Percutaneous Endoscopic Approach (ICD-10-PCS; 2021-05-06)
PROC: 8E0W4CZ Robotic Assisted Procedure of Trunk Region, Percutaneous Endoscopic Approach (ICD-10-PCS; 2021-05-06)
PROC: 5A09357 Assistance with Respiratory Ventilation, Less than 24 Consecutive Hours, Continuous Positive Airway Pressure (ICD-10-PCS; 2021-05-06)
PROC: 0BTF4ZZ Resection of Right Lower Lung Lobe, Percutaneous Endoscopic Approach (ICD-10-PCS; principal; 2021-05-06 14:41)
DX: C34.31 Malignant neoplasm of lower lobe, right bronchus or lung (principal); J96.00 Acute respiratory failure, unspecified whether with hypoxia or hypercapnia; J93.9 Pneumothorax, unspecified; J93.82 Other air leak; G89.29 Other chronic pain; M19.90 Unspecified osteoarthritis, unspecified site; J44.9 Chronic obstructive pulmonary disease, unspecified; F41.9 Anxiety disorder, unspecified; G43.909 Migraine, unspecified, not intractable, without status migrainosus; F32.A Depression, unspecified; E78.5 Hyperlipidemia, unspecified; F17.200 Nicotine dependence, unspecified, uncomplicated; I95.9 Hypotension, unspecified
CPT/HCPCS: Z7506; Z7508; 36415; 36600; 71045; 80053; 82803; 82948; 83735; 84100; 84484; 85018; 85025; 85610; 85730; 86885; 86900; 86901; 93005; 94010; 94660; 94727; 94729; 94760; 97116; 97161; 97530; A4618; A6258; A6449; A7000; A7048; C1758; C9250; C9290; G0378; J0282; J0690; J1650; J1885; J2250; J2270; J2274; J2405; J2704; J3010; J3480; J3490; J7040; J7060; J7120; P9045

== ENCOUNTER 2022-11-24 07:06 | Emergency (ER) | payer OTHER ==
[~2022-11-24] VITALS: Ht 154.9 cm; Wt 54.5 kg
[2022-11-24 07:06] VITALS: BP 137/47
[~2022-11-24 07:06] MED LIST changes: +ALBU2.5V7 NEB; +PANT40TA54 PO; -cefazolin/dext.iso 2gm/50ml IV ONE; -famotidine 20mg tablet PO ONE; -ringers solution, lacted 1,000 ML IV SCH
[2022-11-24] MEDS ORDERED: oxyCODONE/APAP 10/325mg tablet PO ONE (08:30)
[2022-11-24] MEDS ORDERED: ketorolac trometh inj. 60 MG/2 ML VIAL IM ONE (08:30)
== END 2022-11-24 09:03 | disposition home or self-care (01) ==
LOC: ER 07:06
DX: S92.252A Displaced fracture of navicular [scaphoid] of left foot, initial encounter for closed fracture (principal); W19.XXXA Unspecified fall, initial encounter; Y93.89 Activity, other specified; Y92.89 Other specified places as the place of occurrence of the external cause; Y99.8 Other external cause status
CPT/HCPCS: 73502; 73630; 96372; 99284; J1885; L3260; A6449

== ENCOUNTER 2024-09-28 10:38 | Emergency (ER) | payer OTHER ==
[~2024-09-28] VITALS: Ht 154.9 cm; Wt 58.0 kg
[2024-09-28 10:44] VITALS: TEMP 97.3
--- NOTE | 2024-09-28 12:55 | Physician Documentation ---
History of Present Illness ~ Chief Complaint: Confused Stated Complaint: FALL/HIT HEAD/DIFF SPEAKING Time Seen by MD: 12:32 OK to notify your PCP?: Yes Primary Medical Doctor: Ruchi Robles Source: patient Mode of Arrival: POV, Dropped Off Exam Limitations: no limitations HPI This is a 68-year-old female who was sent over by her pain management provider for confusion. Evidently they sent her over for an MRI of the brain because she has been more confused lately than usual. The patient was states that is she fell and hit her head in June which was three months ago and this is the cause of the MRI of the brain. She said she has a trip and a fall hitting a door jam with the left side of the forehead. It was there was no KO. She was not complaining of headache. The patient believes that is the reason for her confusion is that the medication she was getting through her pain pump is too strong. Evidently she was getting 400 mcg a fentanyl infused through her pain pump which was supposed to be lowered however there they evidently did not lower it and since receiving in his pain pump and the fentanyl on a regular effusion she has been having the confusion and altered mental status. She said she has been having frequent falls and dizziness also since the instillation of the pain pump. Right now she denies headache, chest pain, visual disturbances or unilateral weakness. The pain pump was placed secondary to chronic low back spinal pain. Medication Reconciliation Allergies: Coded Allergies: No Known Allergies (Unverified , 09/28/24) Scheduled Adalimumab (Humira), 1 SYR SUBCUT Q2W, (Reported) Atorvastatin Calcium* (Lipitor*), 1 TABLET PO HS, (Reported) Escitalopram Oxalate (Escitalopram Oxalate), 1 TAB PO HS, (Reported) Pantoprazole Sodium (Pantoprazole Sodium), 40 MG PO BKF Trazodone HCl (Trazodone HCl), 2 TAB PO HS, (Reported) Scheduled PRN Albuterol Sulfate (Albuterol Sulfate), 2.5 MG NEB Q6H PRN for SOB or wheezing Sumatriptan Succinate* (Imitrex Tab*), 4 TAB PO PRN PRN for headache, (Reported) Miscellaneous Medications [fentanyl pain pump], (Reported) Past Medical History Past Medical History: *MUSCULOSKELETAL*, Chronic Pain, Chronic Back Pain, Extremity Fracture, Osteoarthritis, Rheumatoid Arthritis Past Surgical History: orthopedic surgeries Drug Use: none Lives In: Home Physical Exam Vital Signs: Temperature: 97.3, Heart Rate: 62, Respiratory Rate: 10, BP: 101/43, Pulse Oximetry: 95, Weight: 58.000 Oxygen Flow Rate: 0 Pulse Oximetry Reflects: adequate oxygenation General Appearance: alert, WD/WN, no apparent distress Neck: non-tender, full range of motion, supple, normal inspection Head: normal Head Inspection of the head no obvious trauma or deformity. The patient points to the left forehead as area of her injury three months ago. No obvious trauma. No tenderness to palpation of the area. No periorbital contusion. Negative raccoon eyes or brown signs. Extraocular movements are intact. Pupils/EOM/Fundus: PERRLA, EOM intact Respiratory No accessory muscle use or retractions. Lungs are clear to auscultation all serrato. Cardiovascular No rubs, gallops or murmurs. No peripheral edema, cyanosis or clubbing of the extremities. Orientation / Memory / CN: oriented x3, memory intact, contract processor II-XII nml as tested, normal hearing, normal speech Neurologic Cranial nerves 2-12 grossly intact. No obvious focal neuro deficits. Bilateral major assembly inspector are 5/5 and equal. No pronator drift. Psych / Thought Process: coherent, appropriate affect Skin: warm/dry Progress Results/Orders Reviewed/noted all lab results: Yes Results/Orders Orders - JI BILLS Ct Head (09/28/24 13:14) Mri Head (09/28/24 14:45) Saline Lock (09/28/24 ) Completed Orders - JI BILLS Ct Head (09/28/24 13:14) Cbc/Diff (09/28/24 12:44) CMP (09/28/24 12:44) MG (09/28/24 12:44) Urinalysis, Cult If Indicated (09/28/24 12:44) Mri Head (09/28/24 14:45) Vital Signs 09/28/24 09/28/24 09/28/24 09/28/24 10:44 11:08 11:15 12:26 Temp 97.3 Pulse 81 74 62 Resp 16 14 16 10 B/P (MAP) 109/53 97/43 (61) 101/43 (62) Pulse Ox 97 96 95 O2 Flow Rate 0 0 09/28/24 14:16 Pulse 78 Resp 14 B/P (MAP) 129/60 (83) Pulse Ox 97 O2 Flow Rate 0 Laboratory Tests Test 09/28/24 12:57 09/28/24 13:46 White Blood Count 10.9 Red Blood Count 4.60 Hemoglobin 14.4 Hematocrit 42.6 Mean Corpuscular Volume 92.4 Mean Corpuscular Hemoglobin 31.4 H Mean Corpuscular Hemoglobin Concent 33.9 Red Cell Distribution Width 14.0 Platelet Count 262 Mean Platelet Volume 7.7 Neutrophils (%) (Auto) 58.2 Lymphocytes (%) (Auto) 31.7 Monocytes (%) (Auto) 8.5 Eosinophils (%) (Auto) 0.8 Basophils (%) (Auto) 0.8 Neutrophils # (Auto) 6.3 Lymphocytes # (Auto) 3.4 Monocytes # (Auto) 0.9 Eosinophils # (Auto) 0.1 Basophils # (Auto) 0.1 CBC Comment Sodium Level 143 Potassium Level 4.3 Chloride Level 107 Carbon Dioxide Level 28.0 Anion Gap 8 Blood Urea Nitrogen 16 Creatinine 0.69 Estimated GFR/1.73 m2 85 BUN/Creatinine Ratio 23.2 H Glucose Level 90 Calcium Level 9.1 Magnesium Level 2.3 Total Bilirubin 0.3 Aspartate Amino Transf (AST/SGOT) 15 Alanine Aminotransferase (ALT/SGPT) 21 Alkaline Phosphatase 54 Total Protein 6.6 Albumin 3.7 Globulin 2.9 Albumin/Globulin Ratio 1.3 Chemistry Comments Urine Specimen Description Non-specified Urine Color Yellow Urine Clarity Clear Urine pH 5.5 Urine Specific [place] 1.025 Urine Protein Negative Urine Glucose (UA) Negative Urine Ketones Negative Urine Occult Blood Negative Urine Nitrite Negative Urine Bilirubin Negative Urine Urobilinogen 0.2 Urine Leukocyte Esterase Negative Urine Culture Indicated Not ind Volume Urine Centrifuged 10 ml Urine Comment Medical Decision Making Findings The CT scan of the brain without IV contrast showed possible masses with mass effect and midline shift. I received a call from the radiologist and MRI of the brain with IV contrast was suggested. MRI of the brain confirmed multiple masses throughout the brain with surrounding edema and midline shift. No obvious active hemorrhaging. The patient did not then revealed that she has a history of lung cancer with lobectomy and still has a tobacco user. I put a call to Neurosurgery for consultation. I spoke with the neurosurgeon as [facility] who accept with the patient. Transfer is currently pending. Additional Information Head injury. Postconcussive syndrome. Intracranial hemorrhage. Therapeutic fentanyl overdose. Departure Disposition: ADMITTED INPATIENT Impression: Primary Impression: Neoplasm of brain causing mass effect and brain compression on adjacent structures Condition: Stable Referrals: NO PRIMARY CARE PROVIDER (PCP) Signature Scribe Signature: No scribe Attestation: The note accurately reflects work and decisions made by me.Ji DONNELLY 09/28/24 17:34 JI BILLS September 28, 2024 12:55
[2024-09-28 13:10] LABS: BASOPHILS # (AUTO) 0.1 X10'3 (0-0.2); BASOPHILS % (AUTO) 0.8 % (0-1); EOSINOPHILS # (AUTO) 0.1 X10'3 (0-0.9); EOSINOPHILS % (AUTO) 0.8 % (0-6); HEMATOCRIT 42.6 % (35.0-45.0); HEMOGLOBIN 14.4 g/dl (12.0-16.0); LYMPHOCYTES # (AUTO) 3.4 X10'3 (1.1-4.8); LYMPHOCYTES % (AUTO) 31.7 % (21-51); MEAN CORPUSCULAR HEMOGLOBIN 31.4 PG (27.0-31.0); MEAN CORPUSCULAR HGB CONC 33.9 g/dL (33.0-36.5); MEAN CORPUSCULAR VOLUME 92.4 FL (78-98); MEAN PLATELET VOLUME 7.7 FL (7.4-10.4); MONOCYTES # (AUTO) 0.9 X10'3 (0-0.9); MONOCYTES % (AUTO) 8.5 % (2-12); NEUTROPHILS # (AUTO) 6.3 X10'3 (1.8-7.7); NEUTROPHILS % (AUTO) 58.2 % (42-75); PLATELET COUNT 262 X10'3 (140-440); WHITE BLOOD COUNT 10.9 X10'3 (4.5-11.0)
[2024-09-28 13:33] LABS: ALANINE AMINOTRANSFERASE 21 U/L (12-78); ALBUMIN 3.7 G/DL (3.4-5.0); ALBUMIN/GLOBULIN RATIO 1.3 (1.1-1.5); ALKALINE PHOSPHATASE 54 IU/L (46-116); ANION GAP 8 (8-16); ASPARTATE AMINO TRANSFERASE 15 U/L (10-37); BILIRUBIN,TOTAL 0.3 MG/DL (0.1-1.0); BLOOD UREA NITROGEN 16 MG/DL (7-18); BUN/CREATININE RATIO 23.2 (10.0-20.0); CALCIUM 9.1 MG/DL (8.5-10.1); CHLORIDE 107 MMOL/L (99-107); CREATININE 0.69 MG/DL (0.40-0.90); GLUCOSE 90 MG/DL (70-104); MAGNESIUM 2.3 MG/DL (1.5-2.4); POTASSIUM 4.3 MMOL/L (3.5-5.1); SODIUM 143 MMOL/L (135-145); TOTAL PROTEIN 6.6 G/DL (6.4-8.2); eCRCL 61 ML/MIN; eGFR 85 ML/MIN
--- NOTE | 2024-09-28 13:37 | RADIOLOGY REPORT ---
EXAM: CT CT HEAD HISTORY: Confusion COMPARISON: None TECHNIQUE: Axial images of the head were obtained and reformatted in coronal and sagittal planes. All CT scans at this medical facility are performed using dose modulation techniques as appropriate t o a performed exam including the following: Automated exposure control was utilized; adjustment of th e MA and/or KV according to patient size; and use of iterative reconstruction technique. CT Dose: CTDI volume is 43 mGy. Dose-length product is 704 mGy*cm FINDINGS: There is a 2.4 cm hyperdense mass in the medial posterior right temporal lobe with moderate surroundi ng vasogenic edema. There is large amount of vasogenic edema in the left cerebrum. There is a subtle 2.2 cm hyperdense le sarah in the left parietal lobe. There is also a 1.2 cm cystic lesion in the superior left frontal lob e. There is mass effect with compression of the left lateral ventricle. There is approximately 7 mm l lai-fl-afswr midline shift. There is no significant hydrocephalus or extra-axial fluid collection. The visualized paranasal sinuses and mastoid air cells are clear. The calvarium is intact. IMPRESSION: 1. There are lesions in the right and left cerebrum likely metastatic lesions. the largest in the med ial posterior right temporal lobe measuring 2.4 cm. 2. There is bilateral cerebral vasogenic edema, mega-uyeicto-xyox-right. There is compression of the left lateral ventricle and 7 mm ermt-ju-reasx midline shift. Critical findings discussed with ANDRZEJ Gutierrez by Dr. Grey Hampton via phone on 09/28/2024 01:35 PM. HS:Y
[2024-09-28 14:57] LABS: BILIRUBIN,URINE NEGATIVE (Neg); CLARITY,URINE CLEAR (Clear); COLOR,URINE YELLOW (Yellow); GLUCOSE, URINE NEGATIVE (Neg); KETONES,URINE NEGATIVE (Neg); LEUKOCYTE ESTERASE ,URINE NEGATIVE (Neg); NITRITES, URINE NEGATIVE (Neg); OCCULT BLOOD,URINE NEGATIVE (Neg); PH,URINE 5.5 (4.8-8.0); PROTEIN,URINE NEGATIVE (Neg); UROBILINOGEN,URINE 0.2 E.U/dL (0.2-1.0)
[2024-09-28 14:59] LABS: UA COLLECTION TYPE NON-SPECIFIED
--- NOTE | 2024-09-28 15:55 | RADIOLOGY REPORT ---
MRI BRAIN WITH CONTRAST CLINICAL HISTORY: Mass with a midline shift seen on CT scan TECHNIQUE: Multiplanar multisequence images of the brain were obtained prior to and following intravenous admini stration of contrast. 10 cc of gadavist contrast from a prefilled syringe was administered intravenou sly. Comparison: CT CT HEAD on DOS: 09/28/24 FINDINGS: There is a 2.7 x 2.4 cm enhancing mass in the left parietal lobe with large amount of surrounding vas ogenic edema. There is mass effect with sulcal effacement and partial compression of the left lateral ventricle. There is approximately 7 mm setr-yb-xgszs midline shift. There is also a 1.8 x 2.2 cm enhancing mass in the posterior medial right temporal lobe with large am ount of surrounding edema and regional mass effect. There is a ring-enhancing lesion in the superior right frontal lobe measuring 1.4 cm. There is a smal ler ring-enhancing lesion in the anterolateral right frontal lobe measuring 0.8 cm. There are smaller areas of surrounding edema. There is no evidence of acute infarct or intracranial hemorrhage. There is no hydrocephalus or extra -axial fluid collection. The visualized intracranial vasculature demonstrates appropriate flow-voids. The craniocervical junction is within normal limits. The calvarium demonstrates normal marrow signa l. The paranasal sinuses and mastoid air cells are clear. IMPRESSION: 1. Multiple enhancing brain lesions with surrounding vasogenic edema likely metastatic lesions. 2. There is a large 2.7 x 2.4 cm enhancing mass in the left parietal lobe with large amount of surrou nding vasogenic edema. There is mass effect with partial compression of the left lateral ventricle an d approximately 7 mm ppxy-rl-hwodq midline shift. HS:Y
[2024-09-28] MEDS ORDERED: GADOTERATE MEGLUMINE 7.5 MMOL/15 ML VIAL IV ONE (16:25)
[2024-09-28] MEDS ORDERED: levetiracetam inj 500 MG in normal saline 100ml IV soln 100 ML IV ONE (17:25)
[2024-09-28] MEDS: Levetiracetam-NACL 500mg/100ml 100 ML IV ONE (18:02)
[2024-09-28] MEDS: dexamethasone 4mg/ml inj IV ONE (18:02)
[2024-09-28] MEDS: LORazepam 1 MG tablet PO ONE (21:09)
[2024-09-28 21:18] VITALS: RESP 17
[2024-09-28 22:41] VITALS: BP 121/54; PULSE 82; O2SAT 96
[2024-09-29] MEDS ORDERED: GADOTERATE MEGLUMINE 7.5 MMOL/15 ML VIAL IV ONE (16:25)
== END 2024-09-28 23:41 | disposition short-term general hospital (02) ==
LOC: ER 10:39
DX: G93.5 Compression of brain (principal); M06.9 Rheumatoid arthritis, unspecified
CPT/HCPCS: 36415; 70450; 70553; 80053; 81003; 83735; 85025; 96365; 96366; 96375; 99285; A9575; J1100; J1953